=== PATIENT | female | born 2000 | race Caucasian/White ===

== ENCOUNTER → 2024-03-04 13:35 | Outpatient (REF) | payer OTHER, SELFPAY | LOC: HWRAD 13:35 | PROVIDERS: ATTENDING PHYSICIAN Physician Assistant | DX: R07.89 Other chest pain (principal); R06.02 Shortness of breath | CPT/HCPCS: 71046; 71120 ==

== ENCOUNTER → 2024-05-11 10:25 | Outpatient (REF) | payer OTHER, SELFPAY | LOC: RAD 10:25 | PROVIDERS: ATTENDING PHYSICIAN Physician Assistant | DX: R13.19 Other dysphagia (principal); R07.89 Other chest pain; K21.9 Gastro-esophageal reflux disease without esophagitis | CPT/HCPCS: 74246 ==

== ENCOUNTER → 2024-05-14 16:40 | Outpatient (REF) | payer OTHER, SELFPAY | LOC: RAD 16:40 | PROVIDERS: ATTENDING PHYSICIAN Physician Assistant | DX: R07.89 Other chest pain (principal); R06.02 Shortness of breath | CPT/HCPCS: 71270; Q9967 ==